=== PATIENT | male | born 1975 | race Caucasian/White ===

== ENCOUNTER 2020-12-18 16:50 | Emergency (ER) | payer OTHER | END 2020-12-18 19:50 | disposition home or self-care (01) | LOC: FER 16:50 | DX: S51.812A Laceration without foreign body of left forearm, initial encounter (principal); F17.210 Nicotine dependence, cigarettes, uncomplicated; Z23 Encounter for immunization; W27.0XXA Contact with workbench tool, initial encounter; Y92.009 Unspecified place in unspecified non-institutional (private) residence as the place of occurrence of the external cause | CPT/HCPCS: 73090; 73110; 90471; 90715 ==